=== PATIENT | male | born 1930 | race Caucasian/White ===

== ENCOUNTER → 2018-01-28 | Outpatient (CLI) | payer MEDICARE, BC ==
--- NOTE | 2018-01-28 16:30 | US ---
EXAMINATION TYPE: US kidneys/renal and bladder DATE OF EXAM: 01/28/2018 COMPARISON: NONE CLINICAL HISTORY: R31.9 Hematuria, unspecified. Pt states recent gross hematuria EXAM MEASUREMENTS: Right Kidney: 10.1 x 5.1 x 5.0 cm Left Kidney: 9.8 x 5.6 x 4.8 cm Right Kidney: Appeared wnl Left Kidney: No evidence of hydro, very difficult to visualize due to overlying bowel gas Bladder: Possible solid mass posterior wall= 2.0 x 1.3 x 2.3 cm Bilateral Jets seen: No There is no evidence for hydronephrosis at this point in time. No nephrolithiasis is seen. No grayson s are identified. The urinary bladder is anechoic. Bilateral ureteral jets are seen. 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
== END | disposition home or self-care (01) ==
LOC: RADUSWWP 16:03
PROVIDERS: ATTEND Family Medicine
DX: R31.9 Hematuria, unspecified (principal)
CPT/HCPCS: 76770

== ENCOUNTER → 2018-03-19 | Outpatient (CLI) | payer MEDICARE, BC ==
--- NOTE | 2018-03-19 14:58 | CT ---
EXAMINATION TYPE: CT abdomen pelvis wo con DATE OF EXAM: 03/19/2018 COMPARISON: Ultrasound kidneys 01/28/2018 HISTORY: Hematuria on and off for [address] DLP: 471.8 mGycm Automated exposure control for dose reduction was used. TECHNIQUE: Helical acquisition of images from the lung bases through the pelvis. FINDINGS: Lack of contrast compromises sensitivity. Coronary artery calcifications noted incidentally , there is a small hiatal hernia suspected. LUNG BASES: No significant abnormality is appreciated. AORTA: No significant abnormality is appreciated. LIVER/GB: Cystic focus measures 1 cm on axial image 30 within the right lobe, scattered smaller hypod ense foci noted within the liver, largest measures 13 mm and axial image 53, statistically findings l ikely represent cysts. Gallbladder is contracted. PANCREAS: No significant abnormality is seen. SPLEEN: No significant abnormality is seen. ADRENALS: No significant abnormality is seen. KIDNEYS: No significant abnormality is seen. REPRODUCTIVE ORGANS: Prostate is enlarged and there is associated calcification, suspect a right butch ed sizable hydrocele is present URINARY BLADDER: Soft tissue mass in the posterior aspect of the urinary bladder is towards left of midline, similar to ultrasound findings. Bladder wall is thickened possibly due to chronic outlet obs truction BOWEL: Diverticular changes associated with the colon, the appendix is normal. FREE AIR: No Free Air is visible. ASCITES: None visible. PELVIC ADENOPATHY: None visualized. RETROPERITONEAL ADENOPATHY: No Retroperitoneal Adenopathy visible. OSSEOUS STRUCTURES: Degenerative disc changes are noted in the lower lumbar spine. Probable geode pr esent in the left femoral head. There is a spinal curvature, and there is associated facet arthropath y. 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 NONCONTRAST EXAM. DIVERTICULOSIS AND ADDITIONAL FINDINGS ABOVE.
== END | disposition home or self-care (01) ==
LOC: RADCTMAIN 12:33
PROVIDERS: ATTEND Urology
DX: N40.1 Benign prostatic hyperplasia with lower urinary tract symptoms (principal); N13.8 Other obstructive and reflux uropathy; N43.3 Hydrocele, unspecified; K57.30 Diverticulosis of large intestine without perforation or abscess without bleeding
CPT/HCPCS: 74176

== ENCOUNTER → 2018-04-02 | Outpatient (CLI) | payer MEDICARE, BC ==
[2018-04-02 10:08] LABS: Basophils % (A) 1 %; Eosinophils # (A) 0.1 k/uL (0-0.7); Eosinophils % (A) 3 %; HCT 36.8 % (39.0-53.0); HGB 12.3 gm/dL (13.0-17.5); Lymphocytes % (A) 28 %; MCH 33.5 pg (25.0-35.0); MCHC 33.4 g/dL (31.0-37.0); MCV 100.3 fL (80.0-100.0); Mean Platelet Volume 7.1; Monocytes # (A) 0.4 k/uL (0-1.0); Monocytes % (A) 10 %; Neutrophils # (A) 1.9 k/uL (1.3-7.7); Neutrophils % (A) 55 %; Platelet Count 236 k/uL (150-450); RBC 3.66 m/uL (4.30-5.90); RDW 12.7 % (11.5-15.5); WBC 3.5 k/uL (3.8-10.6)
[2018-04-02 10:16] LABS: Calcium 9.2 mg/dL (8.4-10.2); Potassium 4.2 mmol/L (3.5-5.1)
== END | disposition home or self-care (01) ==
LOC: LABPAT 09:32
PROVIDERS: ATTEND Urology
DX: Z01.812 Encounter for preprocedural laboratory examination (principal); D49.4 Neoplasm of unspecified behavior of bladder; I10 Essential (primary) hypertension; R31.0 Gross hematuria; Z79.899 Other long term (current) drug therapy
CPT/HCPCS: 36415; 80048; 85025; 87086

== ENCOUNTER 2018-04-04 11:28 | Day surgery (SDC) | payer MEDICARE, BC ==
[2018-04-01 15:45] VITALS: BMI 27.4
--- NOTE | 2018-04-01 21:32 | P.GSHP ---
History of Present Illness H&P Date: 04/01/18 Chief Complaint: Gross hematuria The patient is an 87-year-old white male with a 2 month history of gross hematuria. A CT scan showed no renal abnormalities. 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 He now comes for resection. - Constitutional Constitutional: Denies fever - EENT Eyes: bilateral blurred vision - Cardiovascular Cardiovascular: Reports high blood pressure - Genitourinary (Female) Genitourinary: Reports dysuria, Reports hematuria Past Medical History Past Medical History: Cancer, Hyperlipidemia, Hypertension, Prostate Disorder Additional Past Medical History / Comment(s): SKIN CA HX. History of Any Multi-Drug Resistant Organisms: None Reported Past Surgical History: No Surgical Hx Reported Additional Past Anesthesia/Blood Transfusion Reaction / Comment(s): NO PREVIOUS ANESTHESIA. Smoking Status: Former smoker - Past Family History Sister(s) Family Medical History: Cancer Medications and Allergies Home Medications Medication Instructions Recorded Confirmed Type Atorvastatin [Lipitor] 10 mg PO HS 04/01/18 04/01/18 History Doxazosin [Cardura] 1 mg PO HS 04/01/18 04/01/18 History Enalapril [Vasotec] 20 mg PO BID 04/01/18 04/01/18 History Ergocalciferol [Vitamin D2] 50,000 unit PO Q30D 04/01/18 04/01/18 History Finasteride [Proscar] 5 mg PO DAILY 04/01/18 04/01/18 History Hydrochlorothiazide [Hydrodiuril] 25 mg PO DAILY 04/01/18 04/01/18 History Allergies Allergy/AdvReac Type Severity Reaction Status Date / Time No Known Allergies Allergy Verified 04/01/18 15:13 Surgical - Exam - General well developed ( ), well nourished, no distress - Neck no masses, trachea midline - Respiratory normal respiratory effort, clear to auscultation - Cardiovascular Rhythm: regular Abnormal Heart Sounds: no systolic murmur, no diastolic murmur, no rub, no S3 Gallop, no S4 Gallop, no click, no other - Abdomen Abdomen: soft, non tender, no guarding, no rigid, no rebound - Genitourinary normal penis with no external lesions, testicles present right: scrotal mass/hydrocele (right hydrocele) - Psychiatric oriented to time, oriented to person, oriented to place, speech is normal, memory intact Assessment and Plan (1) Bladder neoplasm of uncertain malignant potential Status: Acute Code(s): D41.4 - NEOPLASM OF UNCERTAIN BEHAVIOR OF BLADDER SNOMED Code(s): 92546035 Plan: The patient will undergo cystoscopy with transurethral resection of his bladder tumors. The procedure was reviewed in detail with the patient and his son. Potential risks include anesthesia, bleeding, infection, and bladder perforation. The likelihood of malignancy was discussed.
[~2018-04-04 11:28] MED LIST: LACTATED RINGERS 1,000 ML IV SCH; Pre Op ABX Message 1 EACH MISC MISCELLANE ONE
[2018-04-04] MEDS ORDERED: LIDOCAINE 1% 20 ML VIAL (10MG/ML) FOR IV START INTRADERMA ONE (12:14)
[2018-04-04] MEDS ORDERED: LIDOCAINE 1% INJ 10MG/ML (20 ML MDV) ONE (17:50)
[2018-04-04] MEDS ORDERED: ePHEDrine SULFATE/0.9% NACL/PF 50 MG/5 ML SYRINGE IV ONE (17:50)
[2018-04-04] MEDS ORDERED: SUCCINYLCHOLINE CHLORIDE 100 MG/5 ML SYR IV ONE (17:50)
[2018-04-04] MEDS ORDERED: PROPOFOL 10 MG/ML 20 ML VIAL IV ONE (17:50)
[2018-04-04] MEDS ORDERED: fentaNYL (PF) 50 MCG/ML 2 ML AMP ONE (17:50)
--- NOTE | 2018-04-04 18:39 | P.OP ---
Date of Procedure: 04/04/18 Preoperative Diagnosis: Bladder Tumors Postoperative Diagnosis: Same Procedure(s) Performed: Cystoscopy, transurethral resection of bladder tumors (medium) Anesthesia: LISETHA Surgeon: Anshul Antony Estimated Blood Loss (ml): 10 IV fluids (ml): 150 Pathology: other (Bladder tumor fragments) Condition: stable Disposition: PACU Indications for Procedure: The patient is an 87-year-old white male with a 2 month history of gross hematuria. A CT scan showed no renal abnormalities. 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 He now comes for resection. Operative Findings: Multiple papillary tumors on posterior bladder dome. Description of Procedure: The patient was taken in the operating room and placed in the dorsal lithotomy position, with his legs supported in Rico stirrups. The external genitalia was prepped and draped sterilely. The 24-Frisian Storz resectoscope sheath was introduced into the bladder. The bladder was inspected. Both ureteral orifices were of normal anatomic location and configuration, and clear urine effluxed from both. The entire bladder was examined, revealing multiple papillary tumors on the posterior bladder dome. The prostate was partially obstructed with a trilobar configuration. Using the cutting loop, the tumors were resected down to the muscle. Excellent hemostasis was attained. The resected tissue was saved and sent for pathologic examination. There is no evidence of bladder perforation. An 18-Frisian Martínez catheter was inserted. The return was clear. The patient tolerated the procedure well. He was taken to the recovery room in stable condition.
[2018-04-04] MEDS: HYDROmorphone 0.5 MG/0.5 ML SYRINGE IVP PRN ×2 (19:38→19:53)
[2018-04-04] MEDS ORDERED: LACTATED RINGERS 1,000 ML IV ONE (19:49)
[2018-04-04 21:50] VITALS: RESP 16; TEMP 97.5
[2018-04-05 00:09] VITALS: BP 170/79; PULSE 67
== END 2018-04-04 22:30 | disposition home or self-care (01) ==
LOC: OR 11:28 → 3SUR 19:56 → OR 22:30
PROVIDERS: ATTEND Urology
DX: C67.1 Malignant neoplasm of dome of bladder (principal); N35.9 Urethral stricture, unspecified; N40.0 Benign prostatic hyperplasia without lower urinary tract symptoms; E78.5 Hyperlipidemia, unspecified; I10 Essential (primary) hypertension; N43.3 Hydrocele, unspecified; Z85.828 Personal history of other malignant neoplasm of skin; Z87.891 Personal history of nicotine dependence; Z79.899 Other long term (current) drug therapy; Z85.46 Personal history of malignant neoplasm of prostate
CPT/HCPCS: 88307; 52235; J2001; J3010; J0330; J2704; J1170